=== PATIENT | male | born 1940 | race Caucasian/White ===

== ENCOUNTER 2016-07-18 12:13 | Emergency (ER) | payer MEDICARE, BC ==
--- NOTE | 2016-07-18 13:09 | RAD ---
TWO VIEWS RIGHT HIP: Indication: Fall with right hip pain. 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 No acute fracture or subluxation. POS: [facility]
--- NOTE | 2016-07-18 13:09 | RAD ---
SINGLE AP VIEW OF THE PELVIS: Indication: Fall, right hip pain. FINDINGS: There is moderate degenerative changes seen involving both hips. Enthesopathic changes are seen of the lesser trochanters. Small phleboliths are seen in the lower pelvis. SI joints demonstrate mild degenerative change. IMPRESSION: No acute fracture or subluxation. POS: [facility]
--- NOTE | 2016-07-18 13:15 | PICIS ---
[facility] EMERGENCY RECORD TRIAGE (12:24 SFRE) TRIAGE NOTES: FELL ON SUNDAY AND C/O PAIN TO RIGHT BUTTOCK AREA. (12:24 SFRE) PATIENT: AGE: 76, GENDER: male, : Sun1940, TIME OF GREET: SunJul 18, 2016 12:14, PREFERRED LANGUAGE: Omani, ETHNICITY: Not or , ECODE BILLING MAP: [facility], SSN: [id number], Zip Code: [address], KG WEIGHT: [phone], PHONE: , , , PERSON ID: [id number], PCP: JAMAL. (12:24 SFRE) NAME: José Antonio Jarrell III. (12:36) COMPLAINT: FELL. (12:24 SFRE) ADMISSION: URGENCY: 4 Non Urgent, ADMISSION SOURCE: Home, TRANSPORT: Walk-in, BED: ED -05. (12:24 SFRE) ASSESSMENT: Symptoms began 07/15/2016, Symptoms began 4 days ago. (12:26 SFRE) PAIN: Patient complains of pain described as, sharp, on a scale 0-10 patient rates pain as 10, Location RIGHT HIP/BUTTOCK, Pain is intermittent, Aggravating factors:, Pain exacerbated by movement, No relieving factors. (12:26 SFRE) IMMUNIZATIONS: Flu vaccine up to date, Pneumococcal vaccine up to date. (12:26 SFRE) SIRS SCORING: Heart Rate 55-109 (0), Temp range 96.8-101.1 (0), respiratory rate 12-24 (0), Mental Status altered: no (0). (12:26 SFRE) TRIAGE SCREENING: Patient denies suicidal ideation, Patient denies presence of domestic violence. (12:26 SFRE) PROVIDERS: TRIAGE NURSE: Luci Ulrich RN. (12:24 SFRE) VITAL SIGNS: BP 132/76, Pulse 66, Resp 18, Temp 97.9, (Tympanic), Pain 10, (Sharp), O2 Sat 97, on Room Air, Time 07/18/2016 12:23. (12:23 SFRE) PREVIOUS VISIT ALLERGIES: No Known Allergies. (12:24 SFRE) No Known Allergies. (12:26 SFRE) KNOWN ALLERGIES No Known Allergies CURRENT MEDICATIONS (12:25 SFRE) Aspir-Low: TABLET, DELAYED RELEASE (ENTERIC COATED) : Strength - 81 mg : ORAL Patient Dose: 1 tab(s) Oral once a day. atorvastatin: TABLET : Strength - 20 mg : ORAL Patient Dose: 1 mg Oral once a day. isosorbide mononitrate: TABLET, EXTENDED RELEASE 24 HR : Strength - 30 mg : ORAL Patient Dose: 1 tab(s) Oral once a day. metFORMIN: TABLET : Strength - 500 mg : ORAL Patient Dose: 1 tab(s) Oral 2 times a day (before meals). &a-1R&a+25V*p+0X*w0977A*c202B*c15G*c2P*p-0X&a-25V&a+1R Name: José Antonio Jarrell III : 1940 M76 MedRec: [id number] AcctNum: [id number] Prepared: SunJul 18, 2016 13:48 by Interface Page 1 of 5 pMD [facility] EMERGENCY RECORD meTOPROLOL tartrate: TABLET : Strength - 25 mg : ORAL Patient Dose: 2 tab(s) Oral once a day. finasteride: TABLET : Strength - 5 mg : ORAL Patient Dose: 1 tab(s) Oral once a day. ipratropium bromide: AEROSOL, SPRAY (ML) : Strength - 42 mcg : NASAL Patient Dose: 1 puff(s) Inhaler As Needed. fluticasone: SPRAY, SUSPENSION : Strength - 50 mcg : NASAL Patient Dose: 1 puff(s) Intranasal once a day. Xarelto: TABLET : Strength - 20 mg : ORAL Patient Dose: 1 tab(s) Oral once a day. VITAL SIGNS (12:23 SFRE) VITAL SIGNS: BP: 132/76, Pulse: 66, Resp: 18, Temp: 97.9 (Tympanic), Pain: 10 (Sharp), O2 sat: 97 on Room Air, Time: 07/18/2016 12:23. NURSING ASSESSMENT: EXTREMITY LOWER TRAUMA (12:40 SFRE) CONSTITUTIONAL: Patient arrives ambulatory, Gait steady, History obtained from patient, Patient appears comfortable, Patient cooperative, Patient alert, Oriented to person, place and time, Skin warm, Skin dry, Skin normal in color, Mucous membranes pink, Mucous membranes moist, Patient is well-groomed, Patient complains of PAIN TO RIGHT HIP. MECHANISM OF INJURY: Mechanism of injury fall, from sitting, from height less than 3 feet, landing on hard surface, landing on buttocks, Notes: PATIENT STATES HE WAS GOING TO SIT IN CHAIR AND IT ROLLED OUT FROM UNDER HIM, CAUSING HIM TO LAND ON HIS BUTT. PAIN: sharp pain, to the right hip, RIGHT BUTTOCKS, Onset of pain 07/15/2016, on a scale 0-10 patient rates pain as 10, PAIN ONLY WITH MOVEMENT, Pain exacerbated by, Pain exacerbated by. RIGHT LOWER EXTREMITY: Inspection findings include ecchymosis, to RIGHT BUTTOCK. SAFETY: Side rails up, Cart/Stretcher in lowest position, Family at bedside, Call light within reach, Hospital ID band on. NURSING PROCEDURE: DISCHARGE NOTE (13:00 SFRE) DISCHARGE: Patient discharged to home, ambulating without assistance, driving self, accompanied by //partner, Summary of Care printed/ provided, Patient requested and was provided an electronic copy of Discharge Instructions, Discharge instructions given to patient, Simple or moderate discharge teaching performed, by MARGARITA COLUNGA, F/U WITH PCP. RETURN TO ED NEEDED FOR NEW/CONCERNING OR WORSENING SYMPTOMS., Above person(s) &a-1R&a+25V*p+0X*e2147E*c202B*c15G*c2P*p-0X&a-25V&a+1R Name: José Antonio Jarrell III : 1940 M76 MedRec: [id number] AcctNum: [id number] Prepared: jairo Jul 18, 2016 13:48 by Interface Page 2 of 5 pMD [facility] EMERGENCY RECORD verbalized understanding of discharge instructions and follow-up care. NURSING PROCEDURE: TRANSPORT TO TESTS TRANSPORT TO TESTS: Transport indicated to facilitate diagnosis, Patient transported to x-ray, via wheelchair, Accompanied by x-ray radio technician. (12:44 SFRE) FOLLOW-UP: After procedure, patient returned to emergency department. (12:49 SFRE) ORDER DETAILS Order Name: XR Hip Rt 2-3 View STANDARD, Status: Active, Time: 12:30 07/18/2016, User: General Sentiment, - Ordered for: MD Robertson Lefayne, - Entered by: MD Robertson Lefayne - SunJul 18, 2016 12:30, - Quantity: 1, Order Name: XR Pelvis AP STANDARD, Status: Active, Time: 12:30 07/18/2016, User: NELLA, - Ordered for: MD Robertson Lefayne, - Entered by: MD Robertson Lefayne - SunJul 18, 2016 12:30, - Quantity: 1. HPI HIP (12:31 LHOD) CHIEF COMPLAINT: Patient presents for evaluation of pain, to the right hip. HISTORIAN: History provided by patient. MECHANISM OF INJURY: Mechanism of injury fall, from sitting, landing on buttocks. SEVERITY: Maximum severity of pain rated as 10/10, Current severity of pain rated as 10/10. QUALITY: Pain is sharp in nature. TIME COURSE: SUNDAY EVENING WAS TRYING TO SIT ON A ROLLING CHAIR WHEN HE FELL ON BUTTOCKS. HAS HAD CONTINUED / PROGRESSIVE RIGHT HIP PAIN. PT NOTED LARGE BRUISE TODAY. PT IS ON XARELTO. ASSOCIATED WITH: No associated ankle pain, No associated distal injury, No associated distal neuro complaint, No associated fever, No associated foot pain, No associated inability to ambulate, No associated inability to bear weight, No associated knee pain, No associated open wounds, Associated with pain on walking, Associated with swelling, RIGHT HIP PAIN. EXACERBATED BY: Patient's condition exacerbated by walking. RELIEVED BY: Patient's condition relieved by rest. ROS (12:34 LHOD) CONSTITUTIONAL: Historian denies fever. CARDIOVASCULAR: Historian denies chest pain. RESPIRATORY: Historian denies shortness of breath. GI: Historian denies abdominal pain, denies vomiting. GENITOURINARY MALE: Historian denies dysuria, denies urinary &a-1R&a+25V*p+0X*z0900E*c202B*c15G*c2P*p-0X&a-25V&a+1R Name: José Antonio Jarrell III : 1940 M76 MedRec: [id number] AcctNum: [id number] Prepared: SunJul 18, 2016 13:48 by Interface Page 3 of 5 pMD [facility] EMERGENCY RECORD retention. MUSCULOSKELETAL: Historian denies back pain, denies neck pain. RIGHT HIP / BUTTOCKS PAIN. SKIN: BRUISING OVER RIGHT BUTTOCK. NEUROLOGIC: Historian denies headache. HEMO/LYMPHATIC: Historian reports easy bruising, ON XARELTO. NOTES: All systems reviewed, negative except as described above. PAST MEDICAL HISTORY MEDICAL HISTORY: Past medical history includes cardiac history, coronary artery disease, Treated with thrombolytics, on XARELTO, Treated with stent placement, Number of stents: UNKNOWN, Past medical history includes history of diabetes, Type II, Past medical history includes genitourinary history, BPH, Past medical history includes history of hyperlipidemia, high cholesterol, Past medical history includes history of hypertension, which has been treated, Patient is compliant, Past medical history includes history of obesity, Past medical history includes pulmonary disease. (12:26 SFRE) MALE SURGICAL HISTORY: Surgical history of coronary artery bypass graft surgery, four vessels, Surgical history of tonsillectomy. (12:26 SFRE) PSYCHIATRIC HISTORY: Notes: DENIES. (12:26 SFRE) SOCIAL HISTORY: Patient drinks socially, Patient denies drug use, Patient currently uses tobacco, smokes cigarettes, daily, Patient has smoked for 30 years. (12:26 SFRE) NOTES: Nursing records reviewed, ON XARELTO. (12:37 LHOD) PHYSICAL EXAM (12:35 LHOD) CONSTITUTIONAL: Vital Signs Reviewed, Patient afebrile, Pulse normal, Blood pressure normal, Patient appears, in moderate pain distress, Patient alert and oriented to person, place and time, REPORTS PAIN OF 10, BUT SMILING. HEAD: Head exam included findings of head atraumatic. NECK: Neck exam included findings of normal range of motion, Trachea midline. RESPIRATORY CHEST: Respiratory exam included findings of no respiratory distress, Breath sounds clear. CARDIOVASCULAR: Cardiovascular exam included findings of heart rate regular rate and rhythm, DISTANT HEART SOUNDS. ABDOMEN MALE: Abdominal exam included findings of abdomen nontender. BACK: no tenderness. UPPER EXTREMITY: Upper extremity exam normal. LOWER EXTREMITY: RIGHT BUTTOCK WITH MODERATE SOFT TISSUE SWELLING, BRUISING OVER LATERAL RIGHT BUTTOCK. MILD TENDERNESS OVER MEDIAL RIGHT BUTTOCK. NEURO: Neuro exam findings include patient oriented to person, place and time. &a-1R&a+25V*p+0X*z8817E*c202B*c15G*c2P*p-0X&a-25V&a+1R Name: José Antonio Jarrell III : 1940 M76 MedRec: [id number] AcctNum: [id number] Prepared: SunJul 18, 2016 13:48 by Interface Page 4 of 5 pMD [facility] EMERGENCY RECORD SKIN: LARGE BRUISE OVER RIGHT LATERAL BUTTOCKS. EVENTS TRANSFER: Triage to Emergency Main ED -05. (SunJul 18, 2016 12:24 SFRE) Removed from Emergency Main ED -05. (13:02 SFRE) RADIOLOGYINTERPRETATION (12:56 LHOD) LOWER EXTREMITIES: Pelvis films negative, Hip films negative, on the right. DOCTOR NOTES (12:56 LHOD) TEXT: PT AND CAUTIONED ALTHOUGH X-RAY NEGATIVE, HE SHOULD LIMIT WEIGHT BEARING AND RETURN IF WORSE DUE TO OCCULT FRACTURE POSSIBILITY. PROBLEM LIST No recorded problems DIAGNOSIS (12:54 LHOD) FINAL: PRIMARY: RIGHT BUTTOCKS HEMATOMA FROM FALL. DISPOSITION PATIENT: Disposition Type: Discharge, Disposition: *Discharge Home, Condition: Good. (12:54 LHOD) Patient left the department. (13:02 SFRE) INSTRUCTION (12:55 LHOD) DISCHARGE: HEMATOMA, CONTUSION HIP. FOLLOWUP: Follow up with Primary Care Physician as needed. SPECIAL: LIMIT WEIGHT BEARING. COOL COMPRESSES. RETURN IF WORSE OR FOLLOW UP WITH YOUR DOCTOR. PRESCRIPTION No recorded prescriptions IMAGING (13:00 SFRE) *DISCHARGE INSTRUCTIONS RECEIPT: Image captured from scanner. *SUPPLY CHARGE SHEET: Image captured from scanner. ADMIN DIGITAL SIGNATURE: MARGARITA Ulrich Stacey. (13:01 SFRE) MD Robertson Lefayne. (13:44 LHOD) Nelson: LHOD=MD Robertson Lefayne SFRE=MARGARITA Ulrihc Stacey &a-1R&a+25V*p+0X*s1452E*c202B*c15G*c2P*p-0X&a-25V&a+1R Name: José Antonio Jarrell III : 1940 M76 MedRec: [id number] AcctNum: [id number] Prepared: SunJul 18, 2016 13:48 by Interface Page 5 of 5 pMD MTDD
== END 2016-07-18 13:00 | disposition home or self-care (01) ==
LOC: MADERS 12:13
DX: S30.0XXA Contusion of lower back and pelvis, initial encounter (principal); I25.10 Atherosclerotic heart disease of native coronary artery without angina pectoris; E11.9 Type 2 diabetes mellitus without complications; E78.5 Hyperlipidemia, unspecified; E78.00 Pure hypercholesterolemia, unspecified; I10 Essential (primary) hypertension; F17.210 Nicotine dependence, cigarettes, uncomplicated; Z79.82 Long term (current) use of aspirin; Z79.01 Long term (current) use of anticoagulants; Z79.84 Long term (current) use of oral hypoglycemic drugs; Z79.899 Other long term (current) drug therapy; W18.30XA Fall on same level, unspecified, initial encounter
CPT/HCPCS: 72170; 99283

== ENCOUNTER 2016-08-02 13:15 | Outpatient (CLI) | payer MEDICARE, BC ==
[2016-08-02 13:50] LABS: ALT (SGPT) 12 U/L (0-55); AST (SGOT) 12 U/L (5-34); Albumin 4.1 g/dL (3.4-4.8); Alkaline Phosphatase 71 U/L (40-150); Anion Gap 17 mmol/L (10-20); BUN (Urea Nitrogen) 14 mg/dL (8.4-25.7); Calc. Creatinine Clearance 0 mL/min (70-130); Calcium 9.7 mg/dL (7.8-10.44); Carbon Dioxide 21 mmol/L (23-31); Cardiac Risk 3.2 (Less than 4.5); Chloride 108 mmol/L (98-107); Cholesterol 109 mg/dL (< 200 Desired); Estimated GFR-MDRD 60; Globulin 2.5 g/dL (2.4-3.5); Glucose 123 mg/dL (83-110); HDL Cholesterol 34 mg/dL (>60 Neg Risk); LDL Cholesterol, Calculated 57 mg/dL; Potassium 4.7 mmol/L (3.5-5.1); Protein, Total 6.6 g/dL (5.8-8.1); Sodium 141 mmol/L (136-145); Triglycerides 89 mg/dL (Less than 150)
== END 2016-08-02 13:16 | disposition home or self-care (01) ==
LOC: MADLAB 13:15
PROVIDERS: ATTEND Internal Medicine Cardiovascular Disease
DX: E78.00 Pure hypercholesterolemia, unspecified (principal); I10 Essential (primary) hypertension; E11.9 Type 2 diabetes mellitus without complications
CPT/HCPCS: 36415; 80053; 80061

== ENCOUNTER 2017-02-09 14:05 | Outpatient (CLI) | payer MEDICARE, BC ==
[2017-02-09 14:42] LABS: ALT (SGPT) 26 U/L (8-55); AST (SGOT) 17 U/L (5-34); Albumin 4.2 g/dL (3.4-4.8); Alkaline Phosphatase 82 U/L (40-150); Anion Gap 14 mmol/L (10-20); BUN (Urea Nitrogen) 20 mg/dL (8.4-25.7); Bilirubin, Total 0.8 mg/dL (0.2-1.2); Calc. Creatinine Clearance 0 mL/min (70-130); Carbon Dioxide 22 mmol/L (23-31); Cardiac Risk 3.2 (Less than 4.5); Chloride 110 mmol/L (98-107); Cholesterol 119 mg/dl (< 200 Desired); Estimated GFR-MDRD 54; Globulin 3.1 g/dL (2.4-3.5); Glucose 122 mg/dL (83-110); HDL Cholesterol 37 mg/dL (>60 Neg Risk); LDL Cholesterol, Calculated 65 mg/dL; Potassium 4.6 mmol/L (3.5-5.1); Protein, Total 7.3 g/dL (5.8-8.1); Sodium 141 mmol/L (136-145); Triglycerides 83 mg/dL (Less than 150)
== END 2017-02-09 14:06 | disposition home or self-care (01) ==
LOC: MADLAB 14:05
PROVIDERS: ATTEND Internal Medicine
DX: E78.00 Pure hypercholesterolemia, unspecified (principal)
CPT/HCPCS: 36415; 80053; 80061

== ENCOUNTER 2017-11-12 15:07 | Outpatient (CLI) | payer MEDICARE, BC ==
[2017-11-12 16:14] LABS: ALT (SGPT) 25 U/L (8-55); AST (SGOT) 18 U/L (5-34); Albumin 4.2 g/dL (3.4-4.8); Alkaline Phosphatase 74 U/L (40-150); Anion Gap 14 mmol/L (10-20); BUN (Urea Nitrogen) 19 mg/dL (8.4-25.7); Bilirubin, Total 0.9 mg/dL (0.2-1.2); Calc. Creatinine Clearance 0 mL/min (70-130); Carbon Dioxide 21 mmol/L (23-31); Cardiac Risk 3.1 (Less than 4.5); Chloride 111 mmol/L (98-107); Cholesterol 122 mg/dl (< 200 Desired); Estimated GFR-MDRD 52; Globulin 2.9 g/dL (2.4-3.5); Glucose 111 mg/dL (83-110); HDL Cholesterol 39 mg/dL (>60 Neg Risk); LDL Cholesterol, Calculated 57 mg/dL; Potassium 4.2 mmol/L (3.5-5.1); Protein, Total 7.1 g/dL (5.8-8.1); Sodium 142 mmol/L (136-145); Triglycerides 130 mg/dL (Less than 150)
== END 2017-11-12 15:08 | disposition home or self-care (01) ==
LOC: MADLABBHPM 15:07
PROVIDERS: ATTEND Internal Medicine Cardiovascular Disease
DX: E78.00 Pure hypercholesterolemia, unspecified (principal)
CPT/HCPCS: 36415; 80053; 80061

== ENCOUNTER 2018-05-23 16:03 | Outpatient (CLI) | payer MEDICARE, BC ==
[2018-05-23 16:44] LABS: #Basophils 0.1 thou/uL (0.0-0.2); #Eosinphils 0.1 thou/uL (0.0-0.7); #Lymphocytes 1.4 thou/uL (1.20-3.40); #Monocytes 0.5 thou/uL (0.11-0.59); #Neutrophils 5.2 thou/uL (1.40-6.50); %Eosinophils 1.9 % (0.0-10.0); %Lymphocytes 19.1 % (21.0-51.0); Hemoglobin 12.9 g/dL (14.0-18.0); Mean Corpuscular HGB CONC 31.2 g/dL (32.0-36.0); Mean Corpuscular Hemoglobin 28.8 pg (27.0-31.0); Mean Corpuscular Volume 92.5 fL (78.0-98.0); Mean Platelet Volume 7.9 fL (7.4-10.4); Platelet Count 154 thou/uL (130-400); RBC Distribution Width 16.3 % (11.5-14.5); Red Blood Cell (RBC) Count 4.48 mill/uL (4.70-6.10); White Blood Cell (WBC) Count 7.3 thou/uL (4.8-10.8)
[2018-05-23 16:57] LABS: Anion Gap 11 mmol/L (10-20); BUN (Urea Nitrogen) 17 mg/dL (8.4-25.7); Calc. Creatinine Clearance 0 mL/min (70-130); Calcium 9.8 mg/dL (7.8-10.44); Carbon Dioxide 25 mmol/L (23-31); Chloride 107 mmol/L (98-107); Estimated GFR-MDRD 46; Glucose 130 mg/dL (83-110); Potassium 4.2 mmol/L (3.5-5.1); Sodium 139 mmol/L (136-145)
== END 2018-05-23 16:04 | disposition home or self-care (01) ==
LOC: MADLAB 16:03
PROVIDERS: ATTEND Internal Medicine
DX: I10 Essential (primary) hypertension (principal); D64.9 Anemia, unspecified
CPT/HCPCS: 36415; 80048; 85025

== ENCOUNTER 2021-01-11 16:14 | Emergency (ER) | payer MEDICARE, BC ==
[2021-01-11] MEDS ORDERED: Acetaminophen 500 MG TAB ONE (17:36)
== END 2021-01-11 17:49 | disposition home or self-care (01) ==
LOC: MADERS 16:14
DX: S20.211A Contusion of right front wall of thorax, initial encounter (principal); E11.9 Type 2 diabetes mellitus without complications; E78.5 Hyperlipidemia, unspecified; I25.10 Atherosclerotic heart disease of native coronary artery without angina pectoris; I10 Essential (primary) hypertension; N40.0 Benign prostatic hyperplasia without lower urinary tract symptoms; F17.210 Nicotine dependence, cigarettes, uncomplicated; Z79.01 Long term (current) use of anticoagulants; Z79.84 Long term (current) use of oral hypoglycemic drugs; Z79.899 Other long term (current) drug therapy; Z79.82 Long term (current) use of aspirin; W19.XXXA Unspecified fall, initial encounter

== ENCOUNTER 2022-01-08 19:31 | Emergency (ER) | payer MEDICARE, BC ==
[~2022-01-08 19:31] MED LIST: Boostrix 0.5 ML (Tdap) VIAL ONE; Lactated Ringer's 1,000 ML BAG ONE
[2022-01-08] MEDS ORDERED: Bacitracin 1 PK ONE (20:25)
[2022-01-08] MEDS ORDERED: Lidocaine 1% w/Epinephrine 1:100K 20 ML VIAL ONE (20:25)
[2022-01-08] MEDS ORDERED: TETANUS, DIPHTHERIA TOX,ADULT (TDVAX) 0.5 ML VIAL IM ONE (20:25)
[2022-01-08 21:09] LABS: #Basophils 0.1 thou/uL (0.0-0.2); #Lymphocytes 0.9 thou/uL (1.20-3.40); #Monocytes 0.7 thou/uL (0.11-0.59); #Neutrophils 10.9 thou/uL (1.40-6.50); %Basophils 0.7 % (0.0-1.0); %Eosinophils 0.3 % (0.0-10.0); %Lymphocytes 7.1 % (21.0-51.0); %Monocytes 5.5 % (0.0-10.0); %Neutrophils 86.5 % (42.0-75.0); Hemoglobin 11.3 g/dL (14.0-18.0); Mean Corpuscular HGB CONC 32.6 g/dL (32.0-36.0); Mean Corpuscular Hemoglobin 31.1 pg (27.0-31.0); Mean Corpuscular Volume 95.2 fL (78.0-98.0); Mean Platelet Volume 9.1 fL (7.4-10.4); Platelet Count 123 thou/uL (130-400); RBC Distribution Width 13.8 % (11.5-14.5); Red Blood Cell (RBC) Count 3.64 mill/uL (4.70-6.10); White Blood Cell (WBC) Count 12.6 thou/uL (4.8-10.8)
[2022-01-08 21:18] LABS: INR-International Normal Ratio 1.6; Prothrombin Time 18.9 sec (12.0-14.7)
[2022-01-08 21:26] LABS: ALT (SGPT) 7 U/L (8-55); AST (SGOT) 11 U/L (5-34); Albumin 3.6 g/dL (3.4-4.8); Alkaline Phosphatase 135 U/L (40-110); Anion Gap 16 mmol/L (10-20); BUN (Urea Nitrogen) 22 mg/dL (8.4-25.7); Calc. Creatinine Clearance 0 mL/min (70-130); Calcium 9.3 mg/dL (7.8-10.44); Carbon Dioxide 24 mmol/L (23-31); Chloride 109 mmol/L (98-107); Estimated GFR 42; Globulin 2.7 g/dL (2.4-3.5); Glucose 145 mg/dL (83-110); Potassium 4.8 mmol/L (3.5-5.1); Protein, Total 6.3 g/dL (5.8-8.1); Sodium 144 mmol/L (136-145)
[2022-01-08 22:14] LABS: Bilirubin Small (Negative); Blood, Urine Negative (Negative); Clarity Cloudy (Clear); Glucose, Urine (Dipstick) Negative (Negative); Ketone, Urine Negative (Negative); Leukocyte Negative (Negative); Nitrite Negative (Negative); Protein, Urine (Dipstick) 30 mg/dL (Neg-Trace); Urobilinogen 0.2 mg/dL (Less than 2)
[2022-01-08 22:15] LABS: Specific Gravity, Urine 1.028 (1.002-1.036)
[2022-01-08 22:25] LABS: Bacteria/HPF None Seen HPF (None Seen); Mucous/LPF 3+ LPF (<2+); RBC/HPF 0-3 HPF (0-3); Transitional Epithelial 0-3 HPF (None Seen)
[2022-01-09 03:23] LABS: SARS-CoV-2 NAA Rapid Test Not Detected (NotDetected)
[2022-01-09 06:23] LABS: #Basophils 0.1 thou/uL (0.0-0.2); #Eosinphils 0.1 thou/uL (0.0-0.7); #Lymphocytes 1.2 thou/uL (1.20-3.40); #Monocytes 0.6 thou/uL (0.11-0.59); #Neutrophils 6.8 thou/uL (1.40-6.50); %Basophils 0.7 % (0.0-1.0); %Eosinophils 1.2 % (0.0-10.0); %Lymphocytes 13.3 % (21.0-51.0); %Monocytes 7.3 % (0.0-10.0); %Neutrophils 77.5 % (42.0-75.0); Mean Corpuscular Hemoglobin 30.8 pg (27.0-31.0); Mean Corpuscular Volume 96.4 fL (78.0-98.0); Mean Platelet Volume 9.7 fL (7.4-10.4); Platelet Count 101 thou/uL (130-400); RBC Distribution Width 13.7 % (11.5-14.5); Red Blood Cell (RBC) Count 3.23 mill/uL (4.70-6.10); White Blood Cell (WBC) Count 8.7 thou/uL (4.8-10.8)
[2022-01-09 06:31] LABS: Anisocytosis SLIGHT = 6-15 cells (100X) (0-5/hpf); Platelet Morphology Comment Appears Decreased
[2022-01-09 06:34] LABS: ALT (SGPT) Less than 7 U/L (8-55); AST (SGOT) 9 U/L (5-34); Alkaline Phosphatase 111 U/L (40-110); Anion Gap 13 mmol/L (10-20); BUN (Urea Nitrogen) 22 mg/dL (8.4-25.7); Bilirubin, Total 0.9 mg/dL (0.2-1.2); Calc. Creatinine Clearance 0 mL/min (70-130); Calcium 8.8 mg/dL (7.8-10.44); Carbon Dioxide 24 mmol/L (23-31); Chloride 110 mmol/L (98-107); Estimated GFR 53; Globulin 2.2 g/dL (2.4-3.5); Glucose 116 mg/dL (83-110); Potassium 4.1 mmol/L (3.5-5.1); Protein, Total 5.2 g/dL (5.8-8.1); Sodium 143 mmol/L (136-145)
[2022-01-09] MEDS ORDERED: Metoprolol Tartrate 50 MG TAB ONE (08:23)
[2022-01-09] MEDS ORDERED: Apixaban 5 MG TAB PO SCH (10:15)
[2022-01-09] MEDS ORDERED: Finasteride 5 MG TAB PO SCH (10:15)
== END 2022-01-09 19:39 | disposition short-term general hospital (02) ==
LOC: MADERS 19:31
DX: S01.01XA Laceration without foreign body of scalp, initial encounter (principal); S51.011A Laceration without foreign body of right elbow, initial encounter; D64.9 Anemia, unspecified; E86.0 Dehydration; I48.91 Unspecified atrial fibrillation; I45.10 Unspecified right bundle-branch block; I10 Essential (primary) hypertension; I25.10 Atherosclerotic heart disease of native coronary artery without angina pectoris; E11.9 Type 2 diabetes mellitus without complications; E78.5 Hyperlipidemia, unspecified; E78.00 Pure hypercholesterolemia, unspecified; F03.90 Unspecified dementia, unspecified severity, without behavioral disturbance, psychotic disturbance, mood disturbance, and anxiety; E66.9 Obesity, unspecified; F17.210 Nicotine dependence, cigarettes, uncomplicated; W18.30XA Fall on same level, unspecified, initial encounter; Y92.009 Unspecified place in unspecified non-institutional (private) residence as the place of occurrence of the external cause; Z23 Encounter for immunization; Z68.45 Body mass index [BMI] 70 or greater, adult; Z20.822 Contact with and (suspected) exposure to COVID-19; Z95.5 Presence of coronary angioplasty implant and graft; Z79.01 Long term (current) use of anticoagulants; Z79.82 Long term (current) use of aspirin; Z79.899 Other long term (current) drug therapy
CPT/HCPCS: 12001; 36416; 70450; 71045; 72125; 72170; 80053; 81003; 81015; 82550; 83605; 83735; 84484; 85025; 85610; 85730; 90471; 90714; 90715; 93005; 94760; 96360; 96361; J7120; U0002